=== PATIENT | female | born 1960 | race Caucasian/White ===

== ENCOUNTER 2017-08-25 10:07 | Day surgery (SDC) | payer BC ==
[~2017-08-25 10:07] MED LIST: LACTATED RINGERS 1,000 ML IV SCH; LIDOCAINE 1% 20 ML VIAL (10MG/ML) FOR IV START INTRADERMA PRN
[2017-08-25 10:56] LABS: Glucose,Whole Blood 85 mg/dL (75-99)
[2017-08-25 10:58] VITALS: TEMP 98.4
[2017-08-25] MEDS ORDERED: PROPOFOL 10 MG/ML 20 ML VIAL IV ONE (11:08)
[2017-08-25] MEDS ORDERED: LIDOCAINE 1% INJ 10MG/ML (20 ML MDV) ONE (11:08)
--- NOTE | 2017-08-25 11:53 | P.PCN ---
Date of Procedure: 08/25/17 Procedure(s) Performed: Procedure: Total colonoscopy. Preoperative diagnosis: Screening for neoplasia. Postoperative diagnosis: Exam within normal limits. Preparation: HalfLytely prep. Sedation: Was provided by anesthesia. Brief clinical history: The patient is a 57-year-old female who is scheduled for this evaluation for screening for neoplasia. There is family history of ovarian cancer in her mother and sister but she has no family history of colon cancer. Her prior colonoscopy was in 2009. She has no abdominal complaints, bleeding or anemia. Procedure: With the patient on her left lateral decubitus position and after informed consent and adequate sedation, the perianal area was inspected and it did not show any fissures or fistulas. There were no masses felt on digital rectal examination. The Olympus CFQ 160L video colonoscope was then inserted in the rectum in the usual fashion and advanced to the cecum. The mucosa appeared healthy. No polyps or tumors were seen or any obvious diverticular disease or other pathology. I retroflexed the endoscope in the rectum before the endoscope was withdrawn. The patient tolerated the procedure well. Plan: The patient was reassured. She will follow-up with you as planned and I recommended repeat exam in 5 years.
[2017-08-25 12:17] VITALS: BP 121/83; PULSE 65; RESP 18
== END 2017-08-25 12:26 | disposition home or self-care (01) ==
LOC: ORWHC2ENDO 10:07
DX: Z12.11 Encounter for screening for malignant neoplasm of colon (principal); Z88.5 Allergy status to narcotic agent; Z80.41 Family history of malignant neoplasm of ovary
CPT/HCPCS: J2001; J2704; G0121

== ENCOUNTER → 2018-03-08 | Outpatient (CLI) | payer BC ==
--- NOTE | 2018-03-08 15:47 | MR ---
EXAMINATION TYPE: MR shoulder RT wo con DATE OF EXAM: 03/08/2018 COMPARISON: None HISTORY: R shoulder pain TECHNIQUE: Multiplanar, multisequence imaging of the right shoulder is performed without contrast. FINDINGS: Rotator Cuff: Rotator cuff appears intact. Acromioclavicular Joint: Hypertrophy. Minimal downward spurring is present. Greater amount spurring i s directed upwards. Degenerative changes are noted at the acromioclavicular junction. Glenohumeral Joint: Preserved. Labrum: The labrum appears grossly intact given limitation of non-arthrogram study. Biceps Tendon: The long head of biceps is in normal location within bicipital groove. Bone marrow signal: No focal abnormal marrow signal is appreciated. Other: Small amount of fluid is within the some deltoid bursa. Suspicious signal abnormality to sugge st perforation is not identified. Consider mild tendinosis of the supraspinatus and infraspinatus. IMPRESSION: 1. Suggestion of mild tendinosis of the supraspinatus and infraspinatus tendons. 2. No definite perforation is evident. No rotator cuff tear is identified.
== END | disposition home or self-care (01) ==
LOC: RADMRIMAIN 10:54
PROVIDERS: ATTEND Internal Medicine Rheumatology
DX: M75.101 Unspecified rotator cuff tear or rupture of right shoulder, not specified as traumatic (principal)

== ENCOUNTER → 2018-10-28 | Outpatient (CLI) | payer BC, OTHER ==
--- NOTE | 2018-10-28 08:39 | BD ---
EXAMINATION TYPE: Axial Bone Density DATE OF EXAM: 10/28/2018 COMPARISON: 02/05/2012 CLINICAL HISTORY: Screening for osteoporosis. Postmenopausal female. Height: 69 inches Weight: 121 pounds FRAX RISK QUESTIONS: Alcohol (3 or more units per day): no Family History (Parent hip fracture): no Glucocorticoids (More than 3mos): no (Ex: prednisone, prednisolone, methylprednisolone, dexamethasone, and hydrocortisone). History of Fracture in Adulthood: ribs Secondary Osteoporosis: 1. Type 1 Diabetes: no 2. Hyperthyroidism: no 3. Menopause before 45: no 4. Malnutrition: no 5. Chronic liver disease: no Rheumatoid Arthritis: yes in hands & neck Current Tobacco Use: no RISK FACTORS HISTORY OF: Surgery to Spine: yes When: about 1990 Family History of Osteoporosis: patient does not think so Active: yes Diet low in dairy products/other sources of calcium: no Postmenopausal woman: yes Take estrogen and/or progesterone medications: no Lost more than 2 inches in height since high school: no Frequent falls: no Poor Health: no Hyperparathyroidism: no Adrenal Insufficiency: no MEDICATIONS: Prednisone or other steroids: no Thyroid Medications: no Osteoporosis Medications: no Additional Medications: none Additional History: lumbar laminectomy, hx kidney stones, Monoclonal gammopathy Lumbar Spine was measured in 2012 post laminectomy, so done now for comparison EXAM MEASUREMENTS: Bone mineral densitometry was performed using the Azuro System. Bone mineral density as measured about the Lumbar spine is: ----- L1-L4(G/cm2): 1.019 T Score Values are as follows: ----- L2: -0.8 ----- L3: -1.2 ----- L4: -1.3 ----- L1-L4: -1.3 Bone mineral density has: Decreased -2.4% since study of: 01/26/2012 Bone mineral density about the R hip (g/cm2): 1.011 Bone mineral density about the L hip (g/cm2): 0.952 T Score values are as follows: -----R Neck: -0.2 -----L Neck: -0.6 -----R Total: -0.9 -----L Total: -1.2 Bone mineral density has: Decreased -8.9% since study of: 02/05/2012 Bone mineral density about the L Wrist (g/cm2): 0.517 T Score values are as follows: -----Dist. R+U: -2.5 -----Prox. R+U: -3.0 -----Radius total: -2.6 Bone mineral density not previously measured at this site IMPRESSION: Normal (Values between +1 and -1 indicate normal bone mass). Consider repeating this study in 5 year s or sooner if there is some new clinical indication. NOTE: T-SCORE=SD OF THE YOUNG ADULT MEAN.
--- NOTE | 2018-10-28 13:38 | MM ---
Reason for exam: screening (asymptomatic). Last mammogram was performed 1 year and 7 months ago. History: Patient is postmenopausal. Family history of breast cancer in sister at age 64. Saline implants in both breasts, 1998. Physical Findings: A clinical breast exam by your physician is recommended on an annual basis and results should be correlated with mammographic findings. MG Screening Mammo Implant/CAD Bilateral CC, MLO, and ID view(s) were taken. Prior study comparison: March 27, 2017, bilateral MG screening mammo implant/CAD. February 05, 2012, CAD bilateral diagnostic mammogram. There are scattered fibroglandular densities. Finding: There are typically benign vascular, diffuse/scattered calcifications in both breasts. Bilateral breast prothesis. ASSESSMENT: Benign, BI-RAD 2 RECOMMENDATION: Routine screening mammogram of both breasts in 1 year.
== END | disposition home or self-care (01) ==
LOC: RADMAMWWP 06:48
PROVIDERS: ATTEND Family Medicine
DX: Z12.31 Encounter for screening mammogram for malignant neoplasm of breast (principal); Z13.820 Encounter for screening for osteoporosis
CPT/HCPCS: 77067; 77080

== ENCOUNTER → 2020-05-01 | Outpatient (CLI) | payer BC, OTHER ==
--- NOTE | 2020-05-01 15:28 | NM ---
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 Images acq uired 3 hours post injection. FINDINGS: Degenerative uptake about the bilateral hips. Mild degenerative uptake about the shoulders, sternocla vicular joints and right wrist. No intense uptake to suggest a fracture or osseous lesion. IMPRESSION: Degenerative uptake as discussed above.
== END | disposition home or self-care (01) ==
LOC: RADNMMAIN 10:49
PROVIDERS: ATTEND Orthopaedic Surgery Sports Medicine
DX: M16.12 Unilateral primary osteoarthritis, left hip (principal); M70.72 Other bursitis of hip, left hip; M70.71 Other bursitis of hip, right hip; M25.562 Pain in left knee
CPT/HCPCS: 78306; A9503

== ENCOUNTER → 2020-08-02 | Outpatient (CLI) | payer BC, OTHER | END | disposition home or self-care (01) | LOC: LABWHC1 10:44 | PROVIDERS: ATTEND Nurse Practitioner | DX: Z01.818 Encounter for other preprocedural examination (principal) | CPT/HCPCS: 36415; 93005 ==

== ENCOUNTER 2020-08-28 15:46 | Emergency (ER) | payer BC, OTHER ==
[2020-08-28 15:59] VITALS: RESP 18; TEMP 97.8
[2020-08-28 17:28] LABS: Basophils # (A) 0.1 k/uL (0-0.2); Basophils % (A) 1 %; Eosinophils # (A) 0.1 k/uL (0-0.7); Eosinophils % (A) 2 %; HCT 35.8 % (34.0-46.0); HGB 12.1 gm/dL (11.4-16.0); Lymphocytes # (A) 1.3 k/uL (1.0-4.8); Lymphocytes % (A) 24 %; MCH 30.3 pg (25.0-35.0); MCHC 33.7 g/dL (31.0-37.0); Mean Platelet Volume 6.3; Monocytes # (A) 0.3 k/uL (0-1.0); Monocytes % (A) 5 %; Neutrophils # (A) 3.5 k/uL (1.3-7.7); Neutrophils % (A) 66 %; Platelet Count 501 k/uL (150-450); RBC 3.98 m/uL (3.80-5.40); RDW 12.2 % (11.5-15.5); WBC 5.3 k/uL (3.8-10.6)
[2020-08-28 17:39] LABS: ALT 21 U/L (4-34); AST 25 U/L (14-36); African American GFR (CKD) >90 (>60 ml/min/1.73 sqM); Albumin 4.3 g/dL (3.5-5.0); Alkaline Phosphatase 88 U/L (38-126); Anion Gap 7 mmol/L; Blood Urea Nitrogen 9 mg/dL (7-17); Calcium 9.5 mg/dL (8.4-10.2); Carbon Dioxide 27 mmol/L (22-30); Chloride 99 mmol/L (98-107); Glucose 92 mg/dL (74-99); Magnesium 2.1 mg/dL (1.6-2.3); Non-African American GFR(CKD) >90 (>60 ml/min/1.73 sqM); Sodium 133 mmol/L (137-145); Total Bilirubin 0.4 mg/dL (0.2-1.3); Total Protein 7.2 g/dL (6.3-8.2)
[2020-08-28 17:46] LABS: Partial Thromboplastin Time 23.2 sec (22.0-30.0); Prothrombin Time 10.6 sec (9.0-12.0)
--- NOTE | 2020-08-28 17:49 | XR ---
EXAMINATION TYPE: XR chest 1V portable DATE OF EXAM: 08/28/2020 COMPARISON: None available. HISTORY: Chest pain. TECHNIQUE: Single frontal view of the chest is obtained. FINDINGS: There is a limited evaluation of the bilateral mid lungs due to overlapping breast tissues. There is a 1.1 cm nodular opacity overlying the left midlung. There is no significant infiltrate, pl eural effusion, or pneumothorax seen. The cardiac silhouette size is within normal limits. The oss eous structures are intact. IMPRESSION: 1.1 cm left midlung nodular opacity may represent nipple shadow. Attention on pending CT. Otherwise no acute process within the limitations of the study.
--- NOTE | 2020-08-28 17:50 | ED ---
General Adult HPI - General Chief complaint: Chest Pain Stated complaint: chest pain Time Seen by Provider: 08/28/20 16:48 Source: patient, RN notes reviewed, old records reviewed Mode of arrival: ambulatory Limitations: no limitations - History of Present Illness Initial comments: 60-year-old female presenting for evaluation of chest pain and dyspnea. Patient is 3 weeks postop left total hip which was performed at an outside institution. She had been told by her orthopedic surgeon to present to the emergency department over the weekend with complaints of pain behind her left knee as well as chest pain worse while lying flat, and worse with deep inspiration on the left. No central radiating chest pain. She has had a cough and did state that she had a temperature of 99 at home. She states this resolved without specific treatment. - Related Data Home Medications Medication Instructions Recorded Confirmed Acetaminophen Tab [Tylenol] 650 mg PO TID PRN 08/28/20 08/28/20 Apixaban [Eliquis] 2.5 mg PO BID 08/28/20 08/28/20 Allergies Allergy/AdvReac Type Severity Reaction Status Date / Time midazolam [From Versed] AdvReac HYPOTENSION Verified 08/28/20 15:59 NARCOTICS AdvReac HYPOTENSION Uncoded 08/28/20 15:59 Review of Systems ROS Statement: Those systems with pertinent positive or pertinent negative responses have been documented in the HPI. ROS Other: All systems not noted in ROS Statement are negative. Past Medical History Additional Past Medical History / Comment(s): MGUS (MONCLONAL GAMMOPATHY OF UNDERTERMINED SIGNIFICANCE). TENDS TO HAVE LOWER BLOOD PRESSURE. History of Any Multi-Drug Resistant Organisms: None Reported Past Surgical History: Back Surgery, Hysterectomy, Orthopedic Surgery Additional Past Surgical History / Comment(s): LUMBAR LAMINECTOMY, left hip replacement. Past Anesthesia/Blood Transfusion Reactions: No Reported Reaction Additional Past Anesthesia/Blood Transfusion Reaction / Comment(s): VERY SENSITIVE TO VERSED AND NARCOTICS (HYPOTENSION, CODE BLUE DURING ONE SURGERY). Past Psychological History: No Psychological Hx Reported Smoking Status: Never smoker Past Alcohol Use History: Rare Past Drug Use History: None Reported - Past Family History Brother(s) Family Medical History: Deep Vein Thrombosis (DVT), Pulmonary Embolus Sister(s) Family Medical History: Deep Vein Thrombosis (DVT) Mother Family Medical History: Deep Vein Thrombosis (DVT) General Exam Limitations: no limitations General appearance: alert, in no apparent distress Head exam: Present: atraumatic, normocephalic Eye exam: Present: normal appearance, PERRL ENT exam: Present: normal exam Neck exam: Present: normal inspection. Absent: tenderness, meningismus Respiratory exam: Present: normal lung sounds bilaterally. Absent: respiratory distress, wheezes, rales, rhonchi Cardiovascular Exam: Present: regular rate, normal rhythm GI/Abdominal exam: Present: soft. Absent: distended, tenderness, guarding, rebound Extremities exam: Present: normal inspection, normal capillary refill. Absent: pedal edema Neurological exam: Present: alert, oriented X3, CN II-XII intact. Absent: motor sensory deficit Psychiatric exam: Present: normal affect, normal mood Skin exam: Present: warm, dry, intact. Absent: cyanosis, diaphoretic Course Vital Signs 08/28/20 08/28/20 08/28/20 15:55 17:14 18:10 Temperature 97.8 F Pulse Rate 70 72 75 Respiratory 18 18 18 Rate Blood Pressure 109/59 133/78 115/74 O2 Sat by Pulse 99 98 100 Oximetry EKG Findings - EKG Comments: EKG Findings:: EKG: Normal sinus rhythm, rate of 71, NM interval 134, QRS duration 90, QTC 441, no ST segment elevation. Medical Decision Making - Medical Decision Making 60 yo female presenting with pleuritic chest pain for approximately one week after orthopedic surgery. Patient was worked up for PE. She has chest x-ray which is negative for acute cardiopulmonary disease. CT angiography negative for PE or acute findings per she has normal CBC, normal CMP, ultrasound was performed of the left leg as she did state she had some pain behind her left knee. This is negative for DVT. Patient well-appearing with stable vitals. She will be discharged home with close outpatient follow-up. - Lab Data Result diagrams: 08/28/20 17:14 08/28/20 17:14 Lab Results 08/28/20 08/28/20 08/28/20 Range/Units 17:14 17:14 17:14 WBC 5.3 (3.8-10.6) k/uL RBC 3.98 (3.80-5.40) m/uL Hgb 12.1 (11.4-16.0) gm/dL Hct 35.8 (34.0-46.0) % MCV 90.0 (80.0-100.0) fL MCH 30.3 (25.0-35.0) pg MCHC 33.7 (31.0-37.0) g/dL RDW 12.2 (11.5-15.5) % Plt Count 501 H (150-450) k/uL MPV 6.3 Neutrophils % 66 % Lymphocytes % 24 % Monocytes % 5 % Eosinophils % 2 % Basophils % 1 % Neutrophils # 3.5 (1.3-7.7) k/uL Lymphocytes # 1.3 (1.0-4.8) k/uL Monocytes # 0.3 (0-1.0) k/uL Eosinophils # 0.1 (0-0.7) k/uL Basophils # 0.1 (0-0.2) k/uL PT 10.6 (9.0-12.0) sec INR 1.0 (<1.2) APTT 23.2 (22.0-30.0) sec Sodium 133 L (137-145) mmol/L Potassium 4.0 (3.5-5.1) mmol/L Chloride 99 (98-107) mmol/L Carbon Dioxide 27 (22-30) mmol/L Anion Gap 7 mmol/L BUN 9 (7-17) mg/dL Creatinine 0.44 L (0.52-1.04) mg/dL Est GFR (CKD-EPI)AfAm >90 (>60 ml/min/1.73 sqM) Est GFR (CKD-EPI)NonAf >90 (>60 ml/min/1.73 sqM) Glucose 92 (74-99) mg/dL Calcium 9.5 (8.4-10.2) mg/dL Magnesium 2.1 (1.6-2.3) mg/dL Total Bilirubin 0.4 (0.2-1.3) mg/dL AST 25 (14-36) U/L ALT 21 (4-34) U/L Alkaline Phosphatase 88 (38-126) U/L Troponin I (0.000-0.034) ng/mL Total Protein 7.2 (6.3-8.2) g/dL Albumin 4.3 (3.5-5.0) g/dL 08/28/20 Range/Units 17:14 WBC (3.8-10.6) k/uL RBC (3.80-5.40) m/uL Hgb (11.4-16.0) gm/dL Hct (34.0-46.0) % MCV (80.0-100.0) fL MCH (25.0-35.0) pg MCHC (31.0-37.0) g/dL RDW (11.5-15.5) % Plt Count (150-450) k/uL MPV Neutrophils % % Lymphocytes % % Monocytes % % Eosinophils % % Basophils % % Neutrophils # (1.3-7.7) k/uL Lymphocytes # (1.0-4.8) k/uL Monocytes # (0-1.0) k/uL Eosinophils # (0-0.7) k/uL Basophils # (0-0.2) k/uL PT (9.0-12.0) sec INR (<1.2) APTT (22.0-30.0) sec Sodium (137-145) mmol/L Potassium (3.5-5.1) mmol/L Chloride (98-107) mmol/L Carbon Dioxide (22-30) mmol/L Anion Gap mmol/L BUN (7-17) mg/dL Creatinine (0.52-1.04) mg/dL Est GFR (CKD-EPI)AfAm (>60 ml/min/1.73 sqM) Est GFR (CKD-EPI)NonAf (>60 ml/min/1.73 sqM) Glucose (74-99) mg/dL Calcium (8.4-10.2) mg/dL Magnesium (1.6-2.3) mg/dL Total Bilirubin (0.2-1.3) mg/dL AST (14-36) U/L ALT (4-34) U/L Alkaline Phosphatase (38-126) U/L Troponin I <0.012 (0.000-0.034) ng/mL Total Protein (6.3-8.2) g/dL Albumin (3.5-5.0) g/dL Disposition Clinical Impression: Chest pain Disposition: HOME SELF-CARE Condition: Good Instructions (If sedation given, give patient instructions): Chest Pain (ED) Is patient prescribed a controlled substance at d/c from ED?: No Referrals: Bonita Alford MD [Primary Care Provider] - 1-2 days Time of Disposition: 19:50
--- NOTE | 2020-08-28 18:23 | CT ---
EXAMINATION TYPE: CT angio chest DATE OF EXAM: 08/28/2020 6:00 PM COMPARISON: None available. HISTORY: Chest pain post hip replacement x3 weeks ago CT DLP: 201.6 mGycm Automated exposure control for dose reduction was used. CONTRAST: CTA scan of the thorax is performed with IV Contrast, patient injected with 80 mL of Isovue 370, pulm onary embolism protocol. MIP images are created and reviewed. FINDINGS: LUNGS: The lungs are grossly clear, there is no concerning parenchymal mass or nodule identified. T here is no pleural effusion or pneumothorax seen. The tracheobronchial tree is patent. MEDIASTINUM: There is satisfactory enhancement of the pulmonary artery and its branches, there is no CT evidence for pulmonary embolism. There are no greater than 1 cm hilar or mediastinal lymph nodes. No pericardial effusion is seen. OTHER: Limit evaluation of the upper abdomen demonstrates 2 low attenuating left hepatic foci, efraín tible with benign cyst and measure up to 1.6 cm. Bilateral breast implants are seen. IMPRESSION: NO ACUTE PE OR OTHER CARDIOPULMONARY ABNORMALITY. NO SUSPICIOUS PULMONARY NODULE. RADIOGRAPHIC FINDING MOST CONSISTENT WITH NIPPLE SHADOW.
--- NOTE | 2020-08-28 19:16 | US ---
EXAMINATION TYPE: US venous doppler duplex LE LT DATE OF EXAM: 08/28/2020 6:38 PM COMPARISON: NONE CLINICAL HISTORY: dvt?. R/O DVT. Pain. No hx of DVT. Patient had left hip surgery on 08/07/20. Patient on eliquis. SIDE PERFORMED: Left TECHNIQUE: The lower extremity deep venous system is examined utilizing real time linear array sonog saman with graded compression, doppler sonography and color-flow sonography. VESSELS IMAGED: Common Femoral Vein Deep Femoral Vein Greater Saphenous Vein * Femoral Vein Popliteal Vein Small Saphenous Vein * Proximal Calf Veins (* superficial vessels) Left Leg: No evidence of DVT in veins imaged at this time from prox calf veins to CFV/GSV. IMPRESSION: No evidence of left lower extremity DVT.
[2020-08-28 20:16] VITALS: BP 107/67; PULSE 71
== END 2020-08-28 20:16 | disposition home or self-care (01) ==
LOC: EC 15:46
DX: R07.81 Pleurodynia (principal); R06.00 Dyspnea, unspecified; M25.562 Pain in left knee
CPT/HCPCS: 36415; 93005; 80053; 83735; 84484; 85025; 85610; 85730; 71045; 93971; 71275; 99285; Q9967

== ENCOUNTER → 2021-11-14 | Outpatient (CLI) | payer BC, OTHER ==
--- NOTE | 2021-11-15 13:41 | MM ---
Reason for Exam: Screening (asymptomatic). Last mammogram was performed 3 year(s) and 1 month(s) ago. Patient History: Menarche at age 10. First Full-Term at age 20. Left ovary removed at age 48. Right ovary removed at age 48. Hysterectomy at age 48. Postmenopausal. 1998, Bilateral Implants. Sister had breast cancer, age 64. Mother had ovarian cancer. Risk Values: Chantal 5 year model risk: 3.0%. NCI Lifetime model risk: 12.4%. Prior Study Comparison: 02/05/2012 Bilateral Diagnostic Mammogram, [facility]. 03/27/2017 Bilateral Screening Mammogram, [facility]. 10/28/2018 Bilateral Screening Mammogram, [facility]. Tissue Density: The breast tissue is heterogeneously dense. This may lower the sensitivity of mammography. Findings: Analyzed By CAD. Bilateral breast prostheses are present. No suspicious groups of microcalcifications, spiculated or lobular masses, architectural distortion or other secondary signs of malignancy are mammographically apparent. Overall Assessment: Benign, BI-RAD 2 Management: Screening Mammogram of both breasts in 1 year. A negative mammogram report should not preclude additional follow up of suspicious palpable abnormalities. Patient should continue monthly self breast exam. A clinical breast exam by your physician is recommended on an annual basis and results should be correlated with mammographic findings. Electronically signed and approved by: Andrade Tipton D.O. Radiologis
== END | disposition home or self-care (01) ==
LOC: RADMAMWWP 12:47
PROVIDERS: ATTEND Family Medicine
DX: Z12.31 Encounter for screening mammogram for malignant neoplasm of breast (principal); Z78.0 Asymptomatic menopausal state; Z80.3 Family history of malignant neoplasm of breast
CPT/HCPCS: 77067

== ENCOUNTER → 2022-11-20 | Outpatient (CLI) | payer BC, OTHER ==
--- NOTE | 2022-11-20 13:03 | US ---
EXAMINATION TYPE: US pelvic limited DATE OF EXAM: 11/20/2022 COMPARISON: CLINICAL INDICATION: Female, 62 years old with history of R10.2 PELVIC AND PERNIEAL PAIN; Complete h ysterectomy at age 47. Patient states doctor felt something in right pelvis. TECHNIQUE: Transabdominal (TA). Transabdominal sonographic images of the pelvis were acquired. Date of LMP: Unknown EXAM MEASUREMENTS: 1. Uterus: Surgically absent 2. Endometrium: Surgically absent 3. Right Ovary: Surgically absent 4. Left Ovary: Surgically absent 5. Bilateral Adnexa: Peristalsing bowel visualized, no prominent masses or fluid collections seen at time of scan 6. Posterior cul-de-sac: no free fluid IMPRESSION: Postoperative changes as noted. Vaginal cuff is free of mass.
== END | disposition home or self-care (01) ==
LOC: RADUSWWP 12:02
PROVIDERS: ATTEND Family Medicine
DX: N89.8 Other specified noninflammatory disorders of vagina (principal)
CPT/HCPCS: 76857

== ENCOUNTER 2022-12-23 10:27 | Day surgery (SDC) | payer BC, OTHER ==
[~2022-12-23 10:27] MED LIST changes: +LIDOCAINE 1% (10MG/ML) FOR IV START INTRADERMA PRN; -LIDOCAINE 1% 20 ML VIAL (10MG/ML) FOR IV START INTRADERMA PRN
[2022-12-23 11:09] VITALS: RESP 16; TEMP 97.6
[2022-12-23] MEDS ORDERED: PROPOFOL 10 MG/ML 20 ML VIAL IV ONE (12:13)
--- NOTE | 2022-12-23 12:35 | P.PCN ---
Date of Procedure: 12/23/22 Procedure(s) Performed: BRIEF HISTORY: Patient is a 62-year-old pleasant white female scheduled for an elective colonoscopy as a part of screening for colon cancer. PROCEDURE PERFORMED: Colonoscopy. PREOPERATIVE DIAGNOSIS: Screening for colon cancer. IV sedation per Anesthesia. PROCEDURE: After informed consent was obtained, the patient, was brought into the endoscopy unit. IV sedation was administered by Anesthesia under continuous monitoring. Digital rectal examination was normal. Initially the Olympus CF-160 flexible video colonoscope was then inserted in the rectum, gradually advanced into the cecum without any difficulty. Careful examination was performed as the scope was gradually being withdrawn. Ileocecal valve and the appendiceal orifice were visualized and appeared normal. Prep was excellent. Mucosa of the cecum, ascending colon, transverse colon, descending colon, sigmoid colon, and rectum appeared normal. Retroflexion was performed in the rectum and no lesions were seen. The patient tolerated the procedure well. IMPRESSION: Normal-appearing colon from rectum to cecum with no evidence of colorectal neoplasia . RECOMMENDATIONS: Findings of this examination were discussed with the patient as well as a family. She was advised to have a repeat screening colonoscopy in 10 years..
[2022-12-23 12:44] VITALS: BP 102/60; PULSE 51
== END 2022-12-23 13:31 | disposition home or self-care (01) ==
LOC: ORWHC2ENDO 10:27
PROVIDERS: ATTEND Internal Medicine Gastroenterology
DX: Z12.11 Encounter for screening for malignant neoplasm of colon (principal); Z79.899 Other long term (current) drug therapy
CPT/HCPCS: 45378; J2704

== ENCOUNTER → 2023-01-06 | Outpatient (CLI) | payer BC, OTHER ==
--- NOTE | 2023-01-07 19:11 | MM ---
Reason for Exam: Screening (asymptomatic). Last mammogram was performed 1 year(s) and 2 month(s) ago. Patient History: Menarche at age 10. First Full-Term at age 20. Left ovary removed at age 48. Right ovary removed at age 48. Hysterectomy at age 48. Postmenopausal. 1998, Bilateral Implants. Sister had breast cancer, age 64. Mother had ovarian cancer, age 66. Sister had ovarian cancer, age 56. Risk Values: Chantal 5 year model risk: 3.1%. NCI Lifetime model risk: 12.1%. Prior Study Comparison: 03/27/2017 Bilateral Screening Mammogram, [facility]. 10/28/2018 Bilateral Screening Mammogram, [facility]. 11/14/2021 Bilateral MG screening mammo implant/CAD, [facility]. Tissue Density: The breast tissue is almost entirely fat. Findings: Analyzed By CAD. Pattern appears stable. Bilateral breast prostheses are present. Benign-appearing calcification within the breasts bilaterally appears unchanged. No suspicious groups of microcalcifications, spiculated or lobular masses, architectural distortion or other secondary signs of malignancy are mammographically apparent. Overall Assessment: Benign, BI-RAD 2 Management: Screening Mammogram of both breasts in 1 year. A negative mammogram report should not preclude additional follow up of suspicious palpable abnormalities. Patient should continue monthly self breast exam. A clinical breast exam by your physician is recommended on an annual basis and results should be correlated with mammographic findings. Electronically signed and approved by: Andrade Tipton D.O. Radiologis
== END | disposition home or self-care (01) ==
LOC: RADMAMWWP 09:41
PROVIDERS: ATTEND Family Medicine
DX: Z12.31 Encounter for screening mammogram for malignant neoplasm of breast (principal); Z78.0 Asymptomatic menopausal state; Z80.3 Family history of malignant neoplasm of breast
CPT/HCPCS: 77067

== ENCOUNTER → 2023-02-03 | Outpatient (CLI) | payer BC, OTHER ==
--- NOTE | 2023-02-03 23:07 | MR ---
EXAMINATION TYPE: MR hip RT wo con DATE OF EXAM: 02/03/2023 COMPARISON: Nuclear medicine whole body bone scan May 01, 2020. CT abdomen and pelvis September 08 HISTORY: Right hip pain, hx lymphoma. Standard multiplanar, multisequence MRI departmental protocol Multiplanar, multisequence images of the pelvis were acquired without contrast focusing on the right hip. FINDINGS: There is now susceptibility artifact from prior surgery in the left hip and proximal femur. There is moderate to severe axial joint space loss in the right hip with moderate to severe head and neck collar spurring. There is heterogeneous increased T2 signal or edema involving the femoral head present on the superior and medial aspects. There is tiny subchondral cystic change in the superior f emoral head and portions of the acetabulum. Linear diminished T1 signal in the superior portion of th e right femoral head coronal image 10. No bony fragmentation is seen. Muscle bulk in the right thigh is satisfactory and symmetric. The left side. No groin hernia or adenopathy is seen. Patient has little intrapelvic fat. No suspicious bowel dilatation. Urinary bladder appears within no rmal limits. Uterus is atrophic or more likely surgically absent. 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
== END | disposition home or self-care (01) ==
LOC: RADMRIMAIN 06:00
PROVIDERS: ATTEND Orthopaedic Surgery Sports Medicine
DX: M16.11 Unilateral primary osteoarthritis, right hip (principal); M70.71 Other bursitis of hip, right hip; Z85.72 Personal history of non-Hodgkin lymphomas

== ENCOUNTER → 2023-09-17 | Outpatient (CLI) | payer MEDICARE ==
--- NOTE | 2023-09-17 13:34 | BD ---
EXAMINATION TYPE: Axial Bone Density DATE OF EXAM: 09/16/2023 CLINICAL HISTORY: 63 years old Female. ICD-10 CODE: M85.851OTH DISRD OF BONE DENSITY AND STRUCTURE, RI Height: 68 in Weight: 118 lbs FRAX RISK QUESTIONS: History of Fracture in Adulthood: tate rib fx ages 38 and 61 Secondary Osteoporosis: Rheumatoid Arthritis: yes HISTORY OF: Surgery to Hip(/left): age 63 EXAM MEASUREMENTS: Bone mineral densitometry was performed using the [employer] System. Bone mineral density as measured about the Lumbar spine is: ----- L1-L4(G/cm2): 0.990 T Score Values are as follows: ----- L1: -2.2 ----- L2: -1.5 ----- L3: -1.4 ----- L4: -1.5 ----- L1-L4: -1.6 Z Score Values are as follows: ----- L1: -0.2 ----- L2: 0.5 ----- L3: 0.6 ----- L4: 0.5 ----- L1-L4: 0.4 Bone mineral density has: Decreased -2.8% since study of: 10/28/2018 Bone mineral density about the R hip (g/cm2): 0.855 T Score values are as follows: -----R Neck: 1.2 -----R Total: -1.2 Z Score values are as follows: -----R Neck: 2.9 -----R Total: 0.3 Bone mineral density has: Decreased -3.9ince study of: 10/28/2018 FRAX%s: The graph provided illustrates a 9.4chance for a major osteoporotic fx and a 0.1chance for th e hips probability for fx in 10 years time. IMPRESSION: Osteopenia (T Score between -2.5 and -1). There is slightly increased risk of fracture and the patient may be considered for treatment. Re-Screen 2-5 years. NOTE: T-SCORE=SD OF THE YOUNG ADULT MEAN.
--- NOTE | 2023-09-18 10:32 | MR ---
EXAMINATION TYPE: MR liver wo/w con DATE OF EXAM: 09/17/2023 8:53 AM CLINICAL INDICATION:Female, 63 years old with history of K76.89 disease of liver; PHH, Abnormal CT COMPARISON: CT scan abdomen from 08/10/2023. TECHNIQUE: Multiplanar multi-sequence imaging was performed without contrast. Post contrast imaging was performed. Post IV contrast subtraction images were also submitted for review. IV Contrast: 5.5 cc Gadavist FINDINGS: LOWER CHEST: No gross irregularity. ABDOMEN Liver: No evidence for hepatic steatosis or cirrhosis. Multiple observations which are high T2 and lo w T1 signal in the left hepatic lobe largest measuring possibly representing 2 adjacent cysts in tota lity measuring up to 16 mm. No abnormal postcontrast enhancement Gallbladder and Bile ducts: No evidence for ductal dilation, or biliary stricture or evidence of chol edocholithiasis. The gallbladder is within normal limits. Pancreas: No ductal dilation. No evidence for solid mass. Spleen: Normal for size. Adrenal glands: Unremarkable. Kidneys: Dilation of the right renal pelvis with tortuosity. There is relative nondistention of the l ower ureter. No evidence for obstructive uropathy. No suspicious renal masses. Stomach and Bowel: No evidence for bowel wall thickening or evidence for obstruction. Retroperitoneum/Peritoneum: No evidence of pneumoperitoneum or free fluid. Vasculature: No aortic aneurysm. Musculoskeletal: The osseous structures appear intact. Lymph Nodes: No gross evidence for lymphadenopathy. Abdominal wall: Unremarkable. IMPRESSION: 1. Multiple left hepatic lobe high T2 low T1 signal observations most compatible with simple cysts. 2. Dilation of the dilation of the right proximal ureter possibly secondary to proximal ureteral str icture.
== END | disposition home or self-care (01) ==
LOC: RADBDWWP 09-16 13:26 → RADMRIMAIN 07:30
PROVIDERS: ATTEND Family Medicine
DX: M85.851 Other specified disorders of bone density and structure, right thigh (principal); K76.89 Other specified diseases of liver
CPT/HCPCS: 77080; 74183; A9585

== ENCOUNTER 2024-06-14 09:50 | Observation (INO) | payer MEDICARE ==
[2024-06-14 11:20] LABS: Basophils % (A) 1 %; Eosinophils # (A) 0.1 k/uL (0-0.7); Eosinophils % (A) 1 %; HCT 43.5 % (34.0-46.0); HGB 14.1 gm/dL (11.4-16.0); Lymphocytes # (A) 1.1 k/uL (1.0-4.8); Lymphocytes % (A) 25 %; MCH 29.7 pg (25.0-35.0); MCHC 32.4 g/dL (31.0-37.0); MCV 91.7 fL (80.0-100.0); Monocytes # (A) 0.3 k/uL (0-1.0); Monocytes % (A) 7 %; Neutrophils # (A) 2.8 k/uL (1.3-7.7); Neutrophils % (A) 63 %; Platelet Count 280 k/uL (150-450); RBC 4.74 m/uL (3.80-5.40); RDW 12.6 % (11.5-15.5); WBC 4.5 k/uL (3.8-10.6)
[2024-06-14 11:32] LABS: ALT 25 U/L (4-34); AST 34 U/L (14-36); African American GFR (CKD) >90 (>60 ml/min/1.73 sqM); Albumin 4.8 g/dL (3.5-5.0); Alkaline Phosphatase 46 U/L (38-126); Anion Gap 6 mmol/L; Blood Urea Nitrogen 14 mg/dL (7-17); Calcium 9.8 mg/dL (8.4-10.2); Carbon Dioxide 30 mmol/L (22-30); Chloride 102 mmol/L (98-107); Glucose 89 mg/dL (74-99); Magnesium 2.2 mg/dL (1.6-2.3); Non-African American GFR(CKD) >90 (>60 ml/min/1.73 sqM); Potassium 4.5 mmol/L (3.5-5.1); Sodium 138 mmol/L (137-145); Total Bilirubin 0.4 mg/dL (0.2-1.3); Total Protein 8.2 g/dL (6.3-8.2)
--- NOTE | 2024-06-14 11:33 | XR ---
EXAMINATION TYPE: XR chest 2V DATE OF EXAM: 06/14/2024 11:28 AM COMPARISON: 08/28/2020 CLINICAL INDICATION: Female, 63 years old with history of Chest Pain, , TECHNIQUE: PA and lateral views FINDINGS: The cardiomediastinal silhouette, aorta, and pulmonary vasculature are within normal limits. Focal mi dlung opacities correspond to bilateral breast implants. Otherwise, lungs and pleural spaces are yokasta r. IMPRESSION: Densities related to bilateral breast implants. Otherwise, no acute cardiopulmonary process. [facility], Workstation: [facility], 06/14/2024 11:30 AM
[2024-06-14] MEDS: SODIUM CHLORIDE 0.9% 1,000 ML IV STA (11:40)
[2024-06-14] MEDS: ASPIRIN 81 MG PO STA (11:40)
[2024-06-14 11:47] LABS: Prothrombin Time 10.9 sec (10.0-12.5)
[2024-06-14 12:14] LABS: Appearance,Urine Clear (Clear); Bilirubin,Urine Negative (Negative); Blood,Urine Negative (Negative); Color,Urine Colorless; Glucose,Urine (UA) Negative (Negative); Ketones,Urine Negative (Negative); Leukocyte Esterase,Urine Negative (Negative); Nitrite,Urine Negative (Negative); PH, Urine 7.5 (5.0-8.0); Protein,Urine Negative (Negative); Specific Gravity,Urine 1.006 (1.001-1.035); Urobilinogen,Urine <2.0 mg/dL (<2.0)
[2024-06-14] MEDS ORDERED: NALOXONE 0.4 MG/ML 1 ML VIAL IV PRN (12:33)
[2024-06-14] MEDS ORDERED: ONDANSETRON 4 MG/2 ML VIAL IVP PRN (12:33)
--- NOTE | 2024-06-14 13:04 | ED ---
General Adult HPI - General Chief complaint: Chest Pain Stated complaint: Chest Pain Time Seen by Provider: 06/14/24 10:35 Source: patient, RN notes reviewed, old records reviewed Mode of arrival: ambulatory Limitations: no limitations - History of Present Illness Initial comments: Patient is a 63-year-old female who presents emergency department complaining of chest pain. States she has been having intermittent episodes of this over the last 2 weeks along with heart palpitations. Her Fitbit states that she we will going to possible atrial fibrillation with tachycardia and heart rates in the 140s to 150s. Denies any obvious provocative symptoms for the pain but had it today again driving in her car. States she felt a little bit off which is why she pulled over. Describes as a sharp sensation on the underside of her heart. Does not seem to be musculoskeletal. Drove here for further evaluation. No significant cardiac history for her. Does have a history of lymphoma that is currently being monitored. Currently has no symptoms. States it has been intermittent over the last 2 weeks and is uncertain what is causing them. Does have a cardiology appointment for next week but states that as it seems to be more frequent and she had another episode just prior to arrival, she went to be evaluated today. States she does have a history of A-fib but currently is not being treated for A-fib. Presents for further evaluation at this time.Currently is asymptomatic. Symptoms lasted for approximately 20 minutes prior to arrival. Denies any nausea or vomiting or diaphoresis with it. Denies any radiation of the pain. - Related Data Home Medications Medication Instructions Recorded Confirmed Acyclovir [Zovirax] 800 mg PO QID 06/14/24 06/14/24 EPINEPHrine (Auto Inject) [Epipen] 0.3 mg IM ONCE PRN 06/14/24 06/14/24 Allergies Allergy/AdvReac Type Severity Reaction Status Date / Time midazolam [From Versed] AdvReac HYPOTENSION Verified 06/14/24 10:44 NARCOTICS AdvReac HYPOTENSION Uncoded 06/14/24 10:44 Review of Systems ROS Statement: Those systems with pertinent positive or pertinent negative responses have been documented in the HPI. Review of Systems: CONST: Denies fever EYES: Denies blurry vision ENT: Denies nasal congestion C/V: Denies Chest pain RESP: Denies shortness of breath GI: Denies abdominal pain : Denies dysuria SKIN: Denies rash. MSK: Denies joint pain. NEURO: Denies headache ROS Other: All systems not noted in ROS Statement are negative. Past Medical History Past Medical History: Cancer Additional Past Medical History / Comment(s): MGUS (MONCLONAL GAMMOPATHY OF UNDERTERMINED SIGNIFICANCE). TENDS TO HAVE LOWER BLOOD PRESSURE. History of Any Multi-Drug Resistant Organisms: None Reported Past Surgical History: Back Surgery, Hysterectomy, Orthopedic Surgery Additional Past Surgical History / Comment(s): LUMBAR LAMINECTOMY, left hip replacement. Past Anesthesia/Blood Transfusion Reactions: No Reported Reaction Additional Past Anesthesia/Blood Transfusion Reaction / Comment(s): VERY SENSITIVE TO VERSED AND NARCOTICS (HYPOTENSION, CODE BLUE DURING ONE SURGERY). Past Psychological History: No Psychological Hx Reported Past Alcohol Use History: Rare - Past Family History Brother(s) Family Medical History: Deep Vein Thrombosis (DVT), Pulmonary Embolus Sister(s) Family Medical History: Deep Vein Thrombosis (DVT) Mother Family Medical History: Deep Vein Thrombosis (DVT) General Exam - General Exam Comments Initial Comments: General: Appears in no acute distress. HEAD: Normal with no signs of head trauma. EYES: PERRLA, EOMI, conjunctiva normal, no discharge. ENT: Hearing grossly intact, normal oropharynx. RESPIRATORY: Clear breath sounds bilaterally. No wheezes, rales, or rhonchi. C/V: Regular rate and rhythm. S1 and S2 auscultated, no edema, peripheral pulses 2+ and intact throughout ABD: Abd is soft, nontender, nondistended EXT: Normal range of motion, no obvious deformity SKIN: No rashes or lesions observed on exposed skin. NEURO: Alert and oriented x 4. Limitations: no limitations Course Vital Signs 06/14/24 06/14/24 06/14/24 09:59 11:01 11:42 Temperature 98.2 F Pulse Rate 61 58 L 58 L Respiratory 16 20 20 Rate Blood Pressure 136/79 110/69 112/72 O2 Sat by Pulse 100 99 99 Oximetry 06/14/24 13:02 Temperature Pulse Rate 57 L Respiratory 16 Rate Blood Pressure 109/71 O2 Sat by Pulse 99 Oximetry Medical Decision Making - Medical Decision Making Was pt. sent in by a medical professional or institution (, PA, MEMORY CARE PROGRAM RESIDENT, urgent care, hospital, or jail...) When possible be specific @ -No Did you speak to anyone other than the patient for history (EMS, parent, family, police, friend...)? What history was obtained from this source @ -No Did you review nursing and triage notes (agree or disagree)? Why? @ -I reviewed and agree with nursing and triage notes Were old charts reviewed (outside hosp., previous admission, EMS record, old EKG, old radiological studies, urgent care reports/EKG's, jail records)? Report findings @ -No significant change when compared with EKG from 2020. Differential Diagnosis (chest pain, altered mental status, abdominal pain women, abdominal pain men, vaginal bleeding, weakness, fever, dyspnea, syncope, headac he, dizziness, GI bleed, back pain, seizure, CVA, palpatations, mental health, musculoskeletal)? @ -Differential Chest Pain: Stable Angina, Unstable Angina, STEMI, NSTEMI Aortic Dissection, Pneumothorax, Musculoskeletal, Esophageal Spasm GERD, Cholecystitis, Pancreatitis, Zoster, this is not meant to be an all-inclusive list. EKG interpreted by me (3pts min.). @ -As above X-rays interpreted by me (1pt min.). @ -Chest x-ray reveals no obvious acute cardiopulmonary process. CT interpreted by me (1pt min.). @ -None done U/S interpreted by me (1pt. min.). @ -None done What testing was considered but not performed or refused? (CT, X-rays, U/S, labs)? Why? @ -None What meds were considered but not given or refused? Why? @ -None Did you discuss the management of the patient with other professionals (professionals i.e. , PA, MEMORY CARE PROGRAM RESIDENT, lab, RT, psych nurse, oncology social worker, family lawyer, teacher, campus safety officer, case assembler)? Give summary @ -Discussed the case with admitting physician, Dr. Maldonado who accepted the admission. Was smoking cessation discussed for >3mins.? @ -No Was critical care preformed (if so, how long)? @ -No Were there social determinants of health that impacted care today? How? (Homelessness, low income, unemployed, alcoholism, drug addiction, transportation, low edu. Level, literacy, decrease access to med. care, longterm, rehab)? @ -No Was there de-escalation of care discussed even if they declined (Discuss DNR or withdrawal of care, Hospice)? DNR status @ -No What co-morbidities impacted this encounter? (DM, HTN, Smoking, COPD, CAD, Cancer, CVA, ARF, Chemo, Hep., AIDS, mental health diagnosis, sleep apnea, morbid obesity)? @ -None Was patient admitted / discharged? Hospital course, mention meds given and route, prescriptions, significant lab abnormalities, going to OR and other pertinent info. @ -Patient presents with chest pain. Vital signs are within acceptable limits. Symptoms began shortly prior to arrival. Will obtain cardiac workup. Current ly asymptomatic. She is given 324 mg of aspirin. Vital signs are within acceptable limits. Chest x-ray unremarkable. EKG shows no signs of acute ischemia. Laboratory studies unremarkable including undetectable troponin. On reevaluation, patient remains asymptomatic. Heart score is moderate at 4. Patient will be admitted for cardiac observation. She was in agreement this plan. Echo ordered. Cardiology consulted. I spoke with the admitting provider, Dr. Maldonado who accepted the admission. Undiagnosed new problem with uncertain prognosis? @ -No Drug Therapy requiring intensive monitoring for toxicity (Heparin, Nitro, Insulin, Cardizem)? @ -No Were any procedures done? @ -No Diagnosis/symptom? @ -Chest pain Acute, or Chronic, or Acute on Chronic? @ -Acute Uncomplicated (without systemic symptoms) or Complicated (systemic symptoms)? @ -Complicated Side effects of treatment? @ -No Exacerbation, Progression, or Severe Exacerbation? @ -No Poses a threat to life or bodily function? How? (Chest pain, [place], HI, pneumonia, PE, COPD, DKA, ARF, appy, cholecystitis, CVA, Diverticulitis, Homicidal, Suicidal, threat to staff... and all critical care pts) @ -Potentially, yes - Lab Data Result diagrams: 06/14/24 11:00 06/14/24 11:00 Lab Results 06/14/24 06/14/24 06/14/24 Range/Units 11:00 11:00 11:00 WBC 4.5 (3.8-10.6) k/uL RBC 4.74 (3.80-5.40) m/uL Hgb 14.1 (11.4-16.0) gm/dL Hct 43.5 (34.0-46.0) % MCV 91.7 (80.0-100.0) fL MCH 29.7 (25.0-35.0) pg MCHC 32.4 (31.0-37.0) g/dL RDW 12.6 (11.5-15.5) % Plt Count 280 (150-450) k/uL MPV 7.0 Neutrophils % 63 % Lymphocytes % 25 % Monocytes % 7 % Eosinophils % 1 % Basophils % 1 % Neutrophils # 2.8 (1.3-7.7) k/uL Lymphocytes # 1.1 (1.0-4.8) k/uL Monocytes # 0.3 (0-1.0) k/uL Eosinophils # 0.1 (0-0.7) k/uL Basophils # 0.0 (0-0.2) k/uL PT 10.9 (10.0-12.5) sec INR 1.0 (<1.2) APTT 25.0 (22.0-30.0) sec Sodium 138 (137-145) mmol/L Potassium 4.5 (3.5-5.1) mmol/L Chloride 102 (98-107) mmol/L Carbon Dioxide 30 (22-30) mmol/L Anion Gap 6 mmol/L BUN 14 (7-17) mg/dL Creatinine 0.56 (0.52-1.04) mg/dL Est GFR (CKD-EPI)AfAm >90 (>60 ml/min/1.73 sqM) Est GFR (CKD-EPI)NonAf >90 (>60 ml/min/1.73 sqM) Glucose 89 (74-99) mg/dL Calcium 9.8 (8.4-10.2) mg/dL Magnesium 2.2 (1.6-2.3) mg/dL Total Bilirubin 0.4 (0.2-1.3) mg/dL AST 34 (14-36) U/L ALT 25 (4-34) U/L Alkaline Phosphatase 46 (38-126) U/L Troponin I (0.000-0.034) ng/mL Total Protein 8.2 (6.3-8.2) g/dL Albumin 4.8 (3.5-5.0) g/dL TSH 2.230 (0.465-4.680) mIU/L Urine Color Urine Appearance (Clear) Urine pH (5.0-8.0) Ur Specific [place] (1.001-1.035) Urine Protein (Negative) Urine Glucose (UA) (Negative) Urine Ketones (Negative) Urine Blood (Negative) Urine Nitrite (Negative) Urine Bilirubin (Negative) Urine Urobilinogen (<2.0) mg/dL Ur Leukocyte Esterase (Negative) 06/14/24 06/14/24 Range/Units 11:00 11:42 WBC (3.8-10.6) k/uL RBC (3.80-5.40) m/uL Hgb (11.4-16.0) gm/dL Hct (34.0-46.0) % MCV (80.0-100.0) fL MCH (25.0-35.0) pg MCHC (31.0-37.0) g/dL RDW (11.5-15.5) % Plt Count (150-450) k/uL MPV Neutrophils % % Lymphocytes % % Monocytes % % Eosinophils % % Basophils % % Neutrophils # (1.3-7.7) k/uL Lymphocytes # (1.0-4.8) k/uL Monocytes # (0-1.0) k/uL Eosinophils # (0-0.7) k/uL Basophils # (0-0.2) k/uL PT (10.0-12.5) sec INR (<1.2) APTT (22.0-30.0) sec Sodium (137-145) mmol/L Potassium (3.5-5.1) mmol/L Chloride (98-107) mmol/L Carbon Dioxide (22-30) mmol/L Anion Gap mmol/L BUN (7-17) mg/dL Creatinine (0.52-1.04) mg/dL Est GFR (CKD-EPI)AfAm (>60 ml/min/1.73 sqM) Est GFR (CKD-EPI)NonAf (>60 ml/min/1.73 sqM) Glucose (74-99) mg/dL Calcium (8.4-10.2) mg/dL Magnesium (1.6-2.3) mg/dL Total Bilirubin (0.2-1.3) mg/dL AST (14-36) U/L ALT (4-34) U/L Alkaline Phosphatase (38-126) U/L Troponin I <0.012 (0.000-0.034) ng/mL Total Protein (6.3-8.2) g/dL Albumin (3.5-5.0) g/dL TSH (0.465-4.680) mIU/L Urine Color Colorless Urine Appearance Clear (Clear) Urine pH 7.5 (5.0-8.0) Ur Specific [place] 1.006 (1.001-1.035) Urine Protein Negative (Negative) Urine Glucose (UA) Negative (Negative) Urine Ketones Negative (Negative) Urine Blood Negative (Negative) Urine Nitrite Negative (Negative) Urine Bilirubin Negative (Negative) Urine Urobilinogen <2.0 (<2.0) mg/dL Ur Leukocyte Esterase Negative (Negative) - EKG Data -: EKG Interpreted by Me EKG Comments: 12-lead Electrocardiogram Interpretation Note EKG was reviewed and interpreted by myself. 12-lead ECG performed at 1009 is interpreted by me as revealing sinus bradycardia with incomplete right bundle branch block at a rate of 57 beats per minute. [place] is normal. RI interval is 173 ms, QRS durations 103 ms, QTc is 410 ms.. There were no ST or T wave abnormalities to suggest myocardial ischemia or injury. R wave progression across the precordium was satisfactory. By my interpretation this EKG is non-diagnostic for acute ischemia. Disposition Clinical Impression: Chest pain Disposition: ADMITTED IP TO THIS [facility] Condition: Stable Referrals: Bonita Alford MD [Primary Care Provider] - 1-2 days Time of Disposition: 12:33
--- NOTE | 2024-06-14 14:04 | P.HPIM ---
History of Present Illness H&P Date: 06/14/24 Xin De La Cruz is a 63-year-old female patient of Dr. Alford who presented to the ER with concerns of chest pain and the feeling of her heart racing. Patient reports this has been intermittently happening over the past few days. Patient reports on her Fitbit it says that her heart is going to be in the 140s to 150s during her episodes. Denies any history of atrial fibrillation or cardiac history. Chest x-ray no acute cardiopulmonary problems. EKG Sinus Bradycardia incomplete right bundle branch block. UA negative. Lab work unremarkable. At this time patient will be admitted. Cardiology services consulted 2D echo ordered. Repeat labs ordered Review of Systems Please refer to HPI otherwise unremarkable Past Medical History Past Medical History: Cancer Additional Past Medical History / Comment(s): MGUS (MONCLONAL GAMMOPATHY OF UNDERTERMINED SIGNIFICANCE). TENDS TO HAVE LOWER BLOOD PRESSURE. History of Any Multi-Drug Resistant Organisms: None Reported Past Surgical History: Back Surgery, Hysterectomy, Orthopedic Surgery Additional Past Surgical History / Comment(s): LUMBAR LAMINECTOMY, left hip replacement. Past Anesthesia/Blood Transfusion Reactions: No Reported Reaction Additional Past Anesthesia/Blood Transfusion Reaction / Comment(s): VERY SENSITIVE TO VERSED AND NARCOTICS (HYPOTENSION, CODE BLUE DURING ONE SURGERY). Past Psychological History: No Psychological Hx Reported Past Alcohol Use History: Rare - Past Family History Brother(s) Family Medical History: Deep Vein Thrombosis (DVT), Pulmonary Embolus Sister(s) Family Medical History: Deep Vein Thrombosis (DVT) Mother Family Medical History: Deep Vein Thrombosis (DVT) Medications and Allergies Home Medications Medication Instructions Recorded Confirmed Type Acyclovir [Zovirax] 800 mg PO QID 06/14/24 06/14/24 History EPINEPHrine (Auto Inject) [Epipen] 0.3 mg IM ONCE PRN 06/14/24 06/14/24 History Allergies Allergy/AdvReac Type Severity Reaction Status Date / Time midazolam [From Versed] AdvReac HYPOTENSION Verified 06/14/24 10:44 NARCOTICS AdvReac HYPOTENSION Uncoded 06/14/24 10:44 Physical Exam Vitals: Vital Signs Temp Pulse Resp BP Pulse Ox 06/14/24 13:02 57 L 16 109/71 99 06/14/24 11:42 58 L 20 112/72 99 06/14/24 11:01 58 L 20 110/69 99 06/14/24 09:59 98.2 F 61 16 136/79 100 Intake and Output 06/13/24 06/14/24 06/14/24 22:59 06:59 14:59 Other: Weight 54.431 kg Head normocephalic Neck supple Lungs clear to auscultation bilaterally no wheezing or crackles Heart regular rate and rhythm S1-S2, no rub or gallop Abdomen is soft nontender nondistended positive bowel sounds no hepatosplenom egaly Extremities no edema Neuro alert and orientated to 3 Results CBC & Chem 7: 06/14/24 11:00 06/14/24 11:00 Assessment and Plan Assessment: 1. Chest pain with possible new onset A-fib 2. History of hypotension 3. History of left hip replacement 4. History of lumbar laminectomy 5. History of hysterectomy DVT prophylaxis Lovenox. GI prophylax Protonix Cardiology services consulted 2D echo ordered Repeat labs ordered Time with Patient: Greater than 30 (Greater than 60% of the total time spent in counseling and coordination of care)
[2024-06-15 07:23] VITALS: BP 114/77; PULSE 56; RESP 16; TEMP 98
[2024-06-15] MEDS: ENOXAPARIN 40 MG/0.4 ML SYRINGE SQ SCH (08:05)
[2024-06-15] MEDS: PANTOPRAZOLE 40 MG TABLET PO SCH (08:08)
[2024-06-15 08:36] LABS: Basophils # (A) 0.08 X 10*3/uL (0.00-0.10); Basophils % (A) 1.8 %; Eosinophils # (A) 0.08 X 10*3/uL (0.04-0.35); Eosinophils % (A) 1.8 %; HCT 40.6 % (37.2-46.3); Lymphocytes # (A) 1.41 X 10*3/uL (0.90-5.00); Lymphocytes % (A) 31.4 %; MCH 29.2 pg (27.0-32.0); MCV 91.2 FL (80.0-97.0); Mean Platelet Volume 9.7 FL (9.5-12.2); Monocytes # (A) 0.63 X 10*3/uL (0.20-1.00); NRBC Per 100 WBC 0 X 10*3/uL (0.00-0.01); Neutrophils # (A) 2.28 X 10*3/uL (1.80-7.70); Neutrophils % (A) 50.8 %; Platelet Count 243 X 10*3/uL (140-440); RBC 4.45 X 10*6/uL (4.10-5.20); RDW 13.2 % (11.5-14.5); WBC 4.49 X 10*3/uL (4.50-10.00)
[2024-06-15 08:43] LABS: ALT 19 U/L (8-44); AST 21 U/L (13-35); Albumin/Globulin Ratio 1.48 Ratio (1.60-3.17); Alkaline Phosphatase 47 U/L (41-126); BUN/Creat Ratio 23.43 Ratio (12.00-20.00); Blood Urea Nitrogen 16.4 mg/dL (9.0-27.0); Carbon Dioxide 25.3 mmol/L (21.6-31.8); Chloride 107 mmol/L (96-109); Globulin 2.7 g/dL (1.6-3.3); Glucose 87 mg/dL (70-110); Potassium 4.3 mmol/L (3.5-5.5); Sodium 141 mmol/L (135-145); Total Bilirubin 0.5 mg/dL (0.3-1.2); Total Protein 6.7 g/dL (6.2-8.2)
--- NOTE | 2024-06-15 11:12 | CA ---
Transthoracic Echo Report Name: Xin De La Cruz Age: 63 Gender: F : 1960 Exam Date: 06/15/2024 07:32 Exam Location: [place] [facility] Ht (in): 69 Wt (lb): 120 Ordering Physician: Sahil Gross MD Attending/Referring Phys: [employer] Helper Arabella Garcia RDCS Procedure CPT: Indications: Chest Pain, Acute ischemic heart disease, unspecified Cardiac Hx: Technical Quality: Fair Contrast 1: Total Dose (mL): Contrast 2: Total Dose (mL): MEASUREMENTS (Male / Female) Normal Values 2D ECHO LV Diastolic Diameter PLAX 4.8 cm 4.2 - 5.9 / 3.9 - 5.3 cm LV Systolic Diameter PLAX 3.1 cm IVS Diastolic Thickness 0.6 cm 0.6 - 1.0 / 0.6 - 0.9 cm LVPW Diastolic Thickness 0.7 cm 0.6 - 1.0 / 0.6 - 0.9 cm LV Relative Wall Thickness 0.3 LVOT Diameter 1.9 cm Aortic Root Diameter 3.5 cm LV Diastolic Volume MOD BP 88.8 cm??? 67 - 155 / 56 - 104 cm??? LV Systolic Volume MOD BP 38.5 cm??? 22 - 58 / 19 - 49 cm??? LV Ejection Fraction MOD BP 56.6 % >= 55 % LV Cardiac Index MOD BP 1929.8 cm???/min???m??? LV Diastolic Volume MOD 4C 88.6 cm??? LV Systolic Volume MOD 4C 40.0 cm??? LV Ejection Fraction MOD 4C 54.9 % LV Cardiac Index MOD 4C 1869.2 cm???/min???m??? LV Diastolic Length 4C 7.9 cm LV Systolic Length 4C 6.7 cm LV Diastolic Volume MOD 2C 82.3 cm??? LV Systolic Volume MOD 2C 30.2 cm??? LV Ejection Fraction MOD 2C 63.3 % LV Cardiac Index MOD 2C 2000.3 cm???/min???m??? LV Diastolic Length 2C 7.3 cm LV Systolic Length 2C 5.4 cm DOPPLER AV Peak Velocity 106.0 cm/s AV Peak Gradient 4.5 mmHg AV Mean Velocity 75.7 cm/s AV Mean Gradient 2.5 mmHg AV Velocity Time Integral 23.6 cm LVOT Peak Velocity 94.9 cm/s LVOT Peak Gradient 3.6 mmHg LVOT Velocity Time Integral 20.1 cm LVOT Stroke Volume 56.5 cm??? LVOT Stroke Volume Index 34.0 ml/m??? LVOT Cardiac Index 2172.2 cm???/min???m??? AV Area Cont Eq vti 2.4 cm??? AV Area Cont Eq pk 2.5 cm??? Mitral E Point Velocity 55.6 cm/s Mitral A Point Velocity 39.0 cm/s Mitral E to A Ratio 1.4 MV Deceleration Time 164.0 ms MV E' Velocity 9.4 cm/s Mitral E to MV E' Ratio 5.9 PV Peak Velocity 65.4 cm/s PV Peak Gradient 1.7 mmHg FINDINGS Left Ventricle Left ventricular ejection fraction is estimated at 55 %. Left ventricular cavity size normal. Left ventricular wall thickness normal. No obvious regional wall motion abnormalities. Right Ventricle Normal right ventricular size and function. Unable to estimate the right ventricular systolic pressure. Right Atrium Normal right atrial size. Left Atrium Normal left atrial size. Mitral Valve Structurally normal mitral valve. No mitral stenosis. No evidence for mitral valve prolapse. Trace mitral regurgitation. Aortic Valve Trileaflet aortic valve. No aortic valve stenosis or regurgitation. Tricuspid Valve Structurally normal tricuspid valve. No tricuspid stenosis. No tricuspid regurgitation. Pulmonic Valve Structurally normal pulmonic valve. No pulmonic stenosis. No pulmonic regurgitation. Pericardium No pericardial effusion. Aorta Aortic annulus normal. CONCLUSIONS LVEF 55% No obvious regional wall motion abnormality No significant valvular dysfunction Normal RV size and systolic function. Previewed by: Dr Rio Baldwin (Electronically Signed) Final Date: 15 June 2024 11:11
--- NOTE | 2024-06-15 11:43 | P.CRDCN ---
History of Present Illness Consult date: 06/15/24 Consult reason: chest pain History of present illness: This is a 63-year-old female with past medical history of non-Hodgkin's lymphoma [place] [facility] [place] not follow with a heel sprayer. Patient states that for the past month she has had a weird sensation issues going on with her heart. She states sometimes she will wake up with pain on the left side of her chest that sharp. She can roll over in bed a nd then and will go away. It also seems to be worse with deep breathing. Recently her Fitbit told her that she was overexerting herself. On Thursday evening when she went to bed she developed some nausea and then felt her heart was pounding. Her miguel ángel on her Fitbit told her that she was in atrial fi brillation. Yesterday she she experienced chest pain along with some nausea and her tongue was numb. She did not have pounding sensation in her chest. She did have some lightheadedness and dizziness. She states her heart rate was jumping from 35-170. Chest pain went away when she arrived to the hospital. Patient is a non-smoker, no alcohol use no illicit drug use no marijuana use. She drinks 2 cups of coffee per day which she has done for many years. Blood pressure 114/77, heart rate 56, pulse ox 100 % on room air -EKG: Sinus rhythm 57 bpm -Chest x-ray: Densities related to bilateral breast implants. No acute cardiopulmonary process. -Laboratory studies: CBC, INR, electrolytes renal function liver function test all within normal limits. TSH 2.23. Troponin negative x 3. -Home cardiac medications: None -Echocardiogram reveals EF 55%, no significant valvular dysfunction. Review Of Systems: At the time of my exam: CONSTITUTIONAL: Denies fever or chills. HEENT: Denies blurred vision, vision changes, or eye pain. Denies hemoptysis CARDIOVASCULAR: Denies chest pain. Denies orthopnea. Denies PND. Denies palpitations RESPIRATORY: Denies shortness of breath. GASTROINTESTINAL: Denies abdominal pain. Denies nausea or vomiting. HEMATOLOGIC: Denies bleeding disorders. GENITOURINARY: Denies any blood in urine. SKIN: Denies puritis. Denies rash. Physical examination: Gen: This is a thin 63-year-old female in no acute distress VS: reviewed HEENT: Head is atraumatic, normocephalic. Pupils equal, round. Sclerae is anicteric. NECK: Supple. No JVD. LUNGS: Clear to auscultation. No wheezes or rhonchi. No intercostal retractions. HEART: Regular rate and rhythm. No murmur. ABDOMEN: Soft No tenderness. EXTREMITIES: No pedal edema. No calf tenderness. NEUROLOGICAL: Patient is awake, alert and oriented x3. Assessment: Atypical chest pain, acute coronary syndrome ruled out Palpitations, rule out atrial fibrillation Non-Hodgkin's lymphoma Plan: Obtain stress echocardiogram today If stress test is unremarkable, patient is cleared for discharge and will follow-up with Dr. Baldwin in 3 weeks. Arrangements have been made for patient to pick out hand a 14-day Holter monitor at [facility] [place] at the time of discharge. Thank you kindly for this consultation. Nurse practitioner note has been reviewed, I agree with documented findings and plan of care. Patient was seen and examined. Past Medical History Past Medical History: Cancer Additional Past Medical History / Comment(s): MGUS (MONCLONAL GAMMOPATHY OF UNDERTERMINED SIGNIFICANCE). TENDS TO HAVE LOWER BLOOD PRESSURE. History of Any Multi-Drug Resistant Organisms: None Reported Past Surgical History: Back Surgery, Hysterectomy, Orthopedic Surgery Additional Past Surgical History / Comment(s): LUMBAR LAMINECTOMY, left hip replacement. Past Anesthesia/Blood Transfusion Reactions: No Reported Reaction Additional Past Anesthesia/Blood Transfusion Reaction / Comment(s): VERY SENSITIVE TO VERSED AND NARCOTICS (HYPOTENSION, CODE BLUE DURING ONE SURGERY). Past Psychological History: No Psychological Hx Reported Past Alcohol Use History: Rare - Past Family History Brother(s) Family Medical History: Deep Vein Thrombosis (DVT), Pulmonary Embolus Sister(s) Family Medical History: Deep Vein Thrombosis (DVT) Mother Family Medical History: Deep Vein Thrombosis (DVT) Medications and Allergies Home Medications Medication Instructions Recorded Confirmed Type Acyclovir [Zovirax] 800 mg PO QID 06/14/24 06/14/24 History EPINEPHrine (Auto Inject) [Epipen] 0.3 mg IM ONCE PRN 06/14/24 06/14/24 History Allergies Allergy/AdvReac Type Severity Reaction Status Date / Time midazolam [From Versed] AdvReac HYPOTENSION Verified 06/14/24 10:44 NARCOTICS AdvReac HYPOTENSION Uncoded 06/14/24 10:44 Physical Exam Vitals: Vital Signs Temp Pulse Pulse Resp BP BP Pulse Ox 06/15/24 07:00 98 F 56 L 16 114/77 100 06/15/24 01:56 97.9 F 64 17 106/70 98 06/14/24 20:00 98.2 F 62 16 106/68 100 06/14/24 18:11 98.2 F 60 16 119/68 100 06/14/24 17:07 60 18 100/71 99 06/14/24 16:00 60 18 106/64 99 06/14/24 14:00 62 16 116/79 100 06/14/24 13:02 57 L 16 109/71 99 06/14/24 11:42 58 L 20 112/72 99 06/14/24 11:01 58 L 20 110/69 99 06/14/24 09:59 98.2 F 61 16 136/79 100 Intake and Output 06/14/24 06/15/24 06/15/24 22:59 06:59 14:59 Output Total 1 Balance -1 Output: Urine 1 Other: # Voids 1 Results 06/15/24 04:16 06/15/24 04:16 Cardiac Enzymes 06/14/24 06/14/24 06/14/24 Range/Units 11:00 11:00 14:41 AST 34 (14-36) U/L Troponin I <0.012 <0.012 (0.000-0.034) ng/mL 06/14/24 Range/Units 17:31 AST (14-36) U/L Troponin I <0.012 (0.000-0.034) ng/mL Coagulation 06/14/24 Range/Units 11:00 PT 10.9 (10.0-12.5) sec APTT 25.0 (22.0-30.0) sec CBC 06/14/24 Range/Units 11:00 WBC 4.5 (3.8-10.6) k/uL RBC 4.74 (3.80-5.40) m/uL Hgb 14.1 (11.4-16.0) gm/dL Hct 43.5 (34.0-46.0) % Plt Count 280 (150-450) k/uL Comprehensive Metabolic Panel 06/14/24 Range/Units 11:00 Sodium 138 (137-145) mmol/L Potassium 4.5 (3.5-5.1) mmol/L Chloride 102 (98-107) mmol/L Carbon Dioxide 30 (22-30) mmol/L BUN 14 (7-17) mg/dL Creatinine 0.56 (0.52-1.04) mg/dL Glucose 89 (74-99) mg/dL Calcium 9.8 (8.4-10.2) mg/dL AST 34 (14-36) U/L ALT 25 (4-34) U/L Alkaline Phosphatase 46 (38-126) U/L Total Protein 8.2 (6.3-8.2) g/dL Albumin 4.8 (3.5-5.0) g/dL Current Medications Generic Name Dose Route Start Last Admin Trade Name Freq PRN Reason Stop Dose Admin Enoxaparin Sodium 40 mg 06/15/24 09:00 Enoxaparin 40 Mg/0.4 Ml Syringe SQ DAILY MARYAM Naloxone HCl 0.2 mg 06/14/24 12:33 Naloxone 0.4 Mg/Ml 1 Ml Vial IV Q2M PRN Opioid Reversal Ondansetron HCl 4 mg 06/14/24 12:33 Ondansetron 4 Mg/2 Ml Vial IVP Q8HR PRN Nausea And Vomiting Pantoprazole Sodium 40 mg 06/15/24 07:30 Pantoprazole 40 Mg Tablet PO AC-BRKFST MARYAM Intake and Output 06/14/24 06/15/24 06/15/24 22:59 06:59 14:59 Output Total 1 Balance -1 Output: Urine 1 Other: # Voids 1 06/14/24 11:00 06/14/24 11:00
--- NOTE | 2024-06-15 11:59 | CA ---
Stress Echo Report Xin De La Cruz Age: 63 Gender: F : 1960 Exam Date: 06/15/2024 11:11 Exam Location: [facility] Ht (in): 70 Wt (lb): 120 Ordering Physician: Kylee Fraser Referring Physician: Bria MOODY Plant Breeder: Valerie Murdock RDCS Technologist Procedure CPT: Indication: Chest Pain ICD-9 Codes: Rhythm: Patient History: CHEST PAIN, DIFFICULTY IN BREATHING, PALPITATIONS, NUMBNESS IN FACE/NECK, RHEUMATIC FEVER Cardiac Medications: Medications in past 24 hours: Contrast: Stress Results Protocol: Biju Total dose(mL): Exercise Duration (min:sec): 12:[address] Depression (mm): Angina Score: Long Score: METS: 13.3 Resting HR: 76 Resting BP: 101 / 65 Peak HR: 141 Peak BP: 162 / 82 Max Predicted HR: 155 91 % Max Predicted HR Target HR: 132 Double Product: 80296 Stress Summary: BP Response: Reason for Termination: TARGET HR/MAX EXERTION Cardiac Symptoms: NO SYMPTOMS ECG Analysis Resting ECG: Normal sinus rhythm, normal ECG. Stress ECG: No significant ST-T wave changes are nondiagnostic for ischemia Arrhythmia: No sustained arrhythmias or ectopic beats noticed during the stress test Echo Analysis Resting Echo: Normal global and segmental systolic function at rest. Normal resting regional wall motion abnormality Peak Echo Analysis: Normal augmentation of global and segmental systolic function. No stress-induced regional wall motion normality MEASUREMENTS (Male/Female) Normal Values CONCLUSIONS Excellent exercise tolerance for age achieving 13.3 METS Nonischemic ECG and echocardiographic response to treadmill exercise Normal hemodynamic and clinical response to treadmill exercise Overall normal treadmill echo stress test Dr Rio Baldwin (Electronically Signed) Final Date: 15 June 2024 11:58
[2024-06-15 13:28] VITALS: BMI 17.7
--- NOTE | 2024-06-15 13:36 | P.DS ---
Providers Date of admission: 06/14/24 12:34 Expected date of discharge: 06/15/24 Attending physician: Breezy Maldonado Consults: 06/14/24 12:33 Consult Physician Routine Consulting Provider: [facility] Consult Reason/Comments: chest pain Do you want consulting provider notified?: Yes Primary care physician: Bonita Alford Hospital Course: Diagnosis on discharge: 1. Chest pain 2. History of hypotension 3. History of left hip replacement 4. History of lumbar laminectomy 5. History of hysterectomy Hospital course: Xin De La Cruz is a 63-year-old female patient of Dr. Alford who presented to the ER with concerns of chest pain and the feeling of her heart racing. Patient reports this has been intermittently happening over the past few days. Patient reports on her Fitbit it says that her heart is going to be in the 140s to 150s during her episodes. Denies any history of atrial fibrillation or cardiac history. Chest x-ray no acute cardiopulmonary problems. EKG Sinus Bradycardia incomplete right bundle branch block. UA negative. Lab work unremarkable. At this time patient will be admitted. Cardiology services consulted 2D echo ordered. Repeat labs ordered On 06/15/2024 patient was seen and examined on the medical floor she is alert and oriented x 3 in no apparent distress there is no fever or chills no headache or dizziness no chest pain no shortness of breath no cough no nausea or vomiting no abdominal pain no diarrhea and no urinary symptoms, patient underwent stress echo which was within normal limits she was cleared by cardiology for discharge. She will be followed as outpatient by Dr. Alford her primary care physician for further evaluation and treatment Patient Condition at Discharge: Stable Plan - Discharge Summary Discharge Rx Participant: No New Discharge Prescriptions: Continue Acyclovir [Zovirax] 800 mg PO QID EPINEPHrine (Auto Inject) [Epipen] 0.3 mg IM ONCE PRN PRN Reason: Anaphylaxis Discharge Medication List Acyclovir [Zovirax] 800 mg PO QID 06/14/24 [History] EPINEPHrine (Auto Inject) [Epipen] 0.3 mg IM ONCE PRN 06/14/24 [History] Follow up Appointment(s)/Referral(s): Rio Baldwin MD [Medical Doctor] - 07/06/24 2:30 pm Bonita Alford MD [Primary Care Provider] - 1-2 days Activity/Diet/Wound Care/Special Instructions: Patient will chart picker 14-day Holter monitor at [facility] office this afternoon
== END 2024-06-15 14:58 | disposition home or self-care (01) ==
LOC: EC 09:50 → 6NMEDSUR 12:34
PROVIDERS: ADMIT Internal Medicine; ATTEND Internal Medicine
DX: R07.89 Other chest pain (principal); I45.10 Unspecified right bundle-branch block; I95.9 Hypotension, unspecified; C85.90 Non-Hodgkin lymphoma, unspecified, unspecified site; R11.0 Nausea; R00.1 Bradycardia, unspecified; Z79.899 Other long term (current) drug therapy; Z88.5 Allergy status to narcotic agent; Z88.8 Allergy status to other drugs, medicaments and biological substances; Z96.642 Presence of left artificial hip joint; Z90.710 Acquired absence of both cervix and uterus; Z98.890 Other specified postprocedural states; Z98.82 Breast implant status
CPT/HCPCS: 96361 ×3; 96372; 96360; 99285; 36415; 93005; 93306; 93351; 80053 ×2; 83735; 84443; 84484; 85025 ×2; 85610; 85730; 81003; 71046; G0378 ×2; J1650

== ENCOUNTER → 2024-10-20 | Outpatient (CLI) | payer MEDICARE ==
--- NOTE | 2024-10-20 13:18 | FL ---
EXAMINATION TYPE: FL barium swallow w video DATE OF EXAM: 10/20/2024 MODIFIED SWALLOW / DEGLUTITION STUDY CLINICAL HISTORY: Dysphagia. History of lymphoma. TECHNIQUE: Deglutition study is performed utilizing thin liquid barium, nectar thick liquid barium, barium thick pudding, and barium coated cracker. 1 minute 4 seconds of fluoro time and 0 images obta ined. Total dose area product (DAP) in uGy*m?, mGy*cm? (or similar): n/p COMPARISON: None. FINDINGS: The oral and pharyngeal phases show satisfactory initiation and propagation with all modali ties tested. Normal mastication is seen with solid modalities tested. There is no evidence of penet ration or aspiration with any modality tested. No significant pharyngeal residue was appreciated. Hector chung has incidental spondylolisthesis and degenerative disc space narrowing at C4-C5 level. IMPRESSION: No aspiration observed. Please refer to speech therapist notes for further details if ne cessary. [facility], , 10/20/2024 1:15 PM
== END | disposition home or self-care (01) ==
LOC: RADFLMAIN 11:44
PROVIDERS: ATTEND Otolaryngology
DX: R13.10 Dysphagia, unspecified (principal); T17.810A Gastric contents in other parts of respiratory tract causing asphyxiation, initial encounter; Z85.72 Personal history of non-Hodgkin lymphomas
CPT/HCPCS: 74230